=== PATIENT | male | born 1955 | race Caucasian/White ===

== ENCOUNTER 2016-07-18 19:08 | Emergency (ER) | payer MEDICAID, MEDICARE ==
[~2016-07-18] VITALS: Ht 195.6 cm; Wt 112.7 kg
[~2016-07-18 19:08] MED LIST: CHOL100045 PO; CYCL10TA9 PO; FERR-83 PO; HYDR-4003 PO; LATA2.5D6 AFFECT_EYE; MELO-253 PO; TIMO10DR11 OD
[2016-07-18 19:09] VITALS: PULSE 82; RESP 45; O2SAT 100
[2016-07-18] MEDS ORDERED: LISI10TA PO (19:16)
[2016-07-18] MEDS ORDERED: HYG25 PO (19:16)
[2016-07-18] MEDS ORDERED: ferrous PO (19:16)
[2016-07-18 19:47] LABS: BASOPHILS % (AUTO) 0.7 % (0-3); MONOCYTES % (AUTO) 12.3 % (4-12); Mean Corpuscular Hemoglobin 31.2 pg (27.0-35.0); Mean Corpuscular Volume 94.3 fL (81-100); NEUTROPHILS % (AUTO) 57.4 % (40-74); Platelet Count 365 bil/L (150-400)
--- NOTE | 2016-07-18 19:48 | ED.REPORT ---
HPI-Syncope Date of Service July 18, 2016 ED Provider: Dr. Fortino Wolff M.D. History of Present Illness: OCC A 60 year old male with a history of hypertension, hyperlipidemia, peptic ulcer disease, chronic back pain, and PTSD presents to the ED via EMS after a syncopal episode just prior to arrival, after standing up from his chair. The episode was preceded by nausea, lightheadedness, and a left thigh cramp. The patient also reports a "couple of days" of headache and intermittent bilateral leg cramping. EMS found the patient with a systolic BP of 49, a blood sugar of 55, and otherwise normal vital signs. He has had similar lightheadedness after standing recently and had a similar syncopal episode four months ago while in [facility]. The patient denies fever, chills, dysuria, hematuria, hematochezia, chest pain, decreased liquid intake, leg swelling, hypotensive episodes, or other symptoms. He was seen by his PCP this morning for chronic back pain. The patient presents symptom free, other than reporting mild lower back pain from sitting. Nursing Notes Stated Complaint: SYNCOPE,HYPOGLYCEMIA Chief Complaint: General Complaint Nursing Notes Reviewed: Yes ([place] reconciled) Allergies: Coded Allergies: Penicillins (Verified Allergy, Severe, RASH, 07/18/16) trazodone (Verified Adverse Reaction, Severe, HAM VOMITING, 07/18/16) Scheduled ([ferrous]) 65 MG PO DAILY Chlorthalidone (Chlorthalidone) 25 Mg Tablet 25 MG PO DAILY Cholecalciferol (Vitamin D3) (Vitamin D) 1,000 Unit Capsule 1,000 UNIT PO BID PLEASE VERIFY DOSAGE Lisinopril (Lisinopril) 10 Mg Tablet 10 MG PO DAILY Meloxicam (Meloxicam) 15 Mg Tablet 15 MG PO DAILY Timolol Maleate (Timolol Maleate) 10 Ml Drops 1 DROP OD DAILY Scheduled PRN Cyclobenzaprine (Cyclobenzaprine) 10 Mg Tablet 10 MG PO BID PRN PRN Spasm Hydrocodone-Acetaminophen 5-325 mg (Hydrocodone-Acetaminophen 5-325 mg) 1 Each Tablet 1 EACH PO Q6 PRN PRN For Pain General Time Seen by Provider: 19:45 Chief Complaint Other (Syncope) Syncope Description: Same as prior, Single episode Hx Obtained From: Patient Arrived By: Ambulance Onset Occurred: Just prior to arrival Symptom Duration: Since onset Location: : Back: Head: Leg Quality: Painful Severity: Current: Mild Severity: Maximum: Moderate Related History: Reports: Hypertension Immunizations: All up to date Recent Healthcare: Recent doctor visit Similar Sx Previous: Yes Past Medical History Past Medical History Peptic ulcer disease Chronic back pain h/o PTSD Reports: Hyperlipidemia, Hypertension Past Surgical History Obesity surgery (Mian-en-Y) Left shoulder Reports: Appendectomy Smoking History Former Smoker Social History Father had angina Alcohol Use: Denies alcohol use Drug Use: Denies drug use Other Social History: Good social support, Ambulatory Status Independent Review of Systems Review of Systems Note: - Decreased liquid intake, prior hypotensive episodes Constitutional: Denies: Chills, Fever Respiratory: Denies: Non-productive cough, Shortness of breath Cardiovascular: Denies: Chest pain GI: Reports: Nausea, Denies: Diarrhea, Hematochezia, Vomiting Musculoskeletal: Reports: Back pain (Low), Extremity pain (Bilateral lower extremity cramping ), Denies: Extremity swelling Neurologic: Reports: Headache (Resolved), Lightheaded, Syncope Complete sys rev & neg: except as marked. Additional Review of Systems Male: Denies Dysuria, Denies Hematuria Physical Exam Initial Vital Signs Vital Signs (First) Date Time Temp Pulse Resp B/P Pulse Ox O2 Delivery O2 Flow Rate FiO2 07/18/16 19:09 36.2 82 45 100 07/18/16 20:19 94/44 Room Air Initial VS: Reviewed, Unavailable (no BP on chart, ordered), Vital signs abnormal (tachypneic, no BP on chart) Head / Eyes: Atraumatic, Normocephalic ENT: Conjunctiva normal, No scleral icterus Neck: Supple, Full range of motion Skin: Warm, Dry Psychiatric: Mood/affect normal, Behavior normal General/Constitutional: Awake, Alert, Well appearing Hypotensive Respiratory / Chest: Breath sounds NL, Breath sounds = bilat, No respiratory distress Respiratory rate 18 Cardiovascular: Heart rate NL, Regular rhythm, Heart sounds NL Lower Extremity / Pelvis / MS: Inspection NL, No edema Neurologic: Oriented X3, Speech NL, No motor deficits, No sensory deficits Interpretation & Diagnostics Lab Results Interpretation Result Diagram: 07/18/16192807/18/161928 Test 07/18/16 19:25 07/18/16 19:29 07/18/16 19:33 D-Dimer 0.61mg/L FEU (<0.50) White Blood Count 10.9th/mm3 (3.8-10.1) Red Blood Count 4.20mil/mm3 (4.40-5.80) Hemoglobin 13.1g/dL (13.8-17.2) Hematocrit 39.6% (41.0-50.0) Mean Corpuscular Volume 94.3fL (81-100) Mean Corpuscular Hemoglobin 31.2pg (27.0-35.0) Mean Corpuscular Hemoglobin Concent 33.1% (32.0-37.0) Red Cell Distribution Width 12.9% (12.3-15.4) Platelet Count 365bil/L (150-400) Neutrophils (%) (Auto) 57.4% (40-74) Lymphocytes (%) (Auto) 26.4% (14-46) Monocytes (%) (Auto) 12.3% (4-12) Eosinophils (%) (Auto) 3.0% (0-5) Basophils (%) (Auto) 0.7% (0-3) Sodium Level 137mEq/L (134-144) Potassium Level 4.0mEq/L (3.5-5.2) Chloride Level 99mEq/L (97-108) Carbon Dioxide Level 24mmol/L (18-29) Blood Urea Nitrogen 34mg/dL (6-24) Creatinine 1.58mg/dL (0.76-1.27) Estimat Glomerular Filtration Rate 48mL/min (>59) Glucose Level 48mg/dL (60-99) Calcium Level 9.1mg/dL (8.5-10.1) Total Bilirubin 0.2mg/dL (0.0-1.2) Aspartate Amino Transf (AST/SGOT) 17U/L (0-50) Alanine Aminotransferase (ALT/SGPT) 15U/L (0-44) Alkaline Phosphatase 58U/L (25-150) Troponin T < 0.010ug/L (0.0-0.011) Total Protein 7.5g/dL (6.4-8.4) Albumin 4.3g/dL (3.4-5.0) Lactic Acid Level 1.9mmol/L (0.4-2.0) Lab Results Interpretation: CBC normal CMP renal insufficiency (new compared with 2015), hypoglycemia-already treated, repeat Accu-Chek the department normal D-dimer, age adjusted negative ECG Interpretation ECG Interpretation: Normal sinus rhythm rate 91 No acute ischemia or dysrhythmia Time: 19:40 Interpreted by: ED physician Re-Eval/Medical Decision Med Decision/Clinical Course This is a 60-year-old male who presents with a syncopal episode. He reports he sometimes gets dizzy when he stands counseling increasingly common, he is on lisinopril plus a second diuretic medication for blood pressure management. He has had no chest pain, shortness of breath, he has had some trace leg cramps, etc. has been a long standing ongoing issue. He was hypotensive per EMS, but his blood pressures improved, although it still on the low end of normal in the mid 90s. He has no symptoms with it. Tachycardic, he denies fevers, chills, denies GI or blood loss. He had no dysrhythmic events. His EKG is normal. Blood work reveals mild renal insufficiency so is hydrated. It is also possible renal sufficiency secondary to his medications. The patient was observed and did well. His blood pressure remained in the 90s to 100s, but he remained entirely asymptomatic, he can get up, walk around and said he felt normal. Indication he needs to be hospitalized at this time, but I have recommended that his blood pressure medications be held the moment. I have also recommended that he does need to be rechecked by his PCP in follow-up for his renal function. Patient's call for discharge home. Patient discharged ambulatory asymptomatic and good clinical condition. His blood pressure still 96-102 systolic. Patient is also marginally hypoglycemic in the field, he received orange juice, he has Accu-Cheks done that were normal in the department. He has had no further recurrence. Source of Hx: Old records Re-Evaluation/Progress : Time of Eval: 22:50 Patient Status: Condition improved Re-Evaluation/Progress Note: Patient is feeling better but he is still mildly hypotensive. Discussed with patient lab results, diagnosis, and plan for discharge after a successful road test. Follow-up and return to the ER instructions given. Patient agrees with plan for care and all questions were addressed. Differential Diagnosis: Positive: Hypoglycemia, Negative: Alcohol abuse, Anemia, Cerebrovascular accident, Closed head injury , Head trauma, Intracranial bleed, Malingering, Medication-induced, Pneumothorax , Prolonged QT syndrome, Pulmonary embolus, Transient ischemic attack Counseled Regarding: Diagnosis, Lab results, Need for follow-up, When/why to return to ED Discharge & Departure Impression: Primary Impression: Syncope Syncope type: unspecified Qualified Code: R55 - Syncope and collapse Additional Impressions: Renal insufficiency Low blood pressure Hypotension type: unspecified hypotension type Qualified Code: I95.9 - Hypotension, unspecified Hypoglycemia Disposition: Home Discharge Condition All VS Reviewed: Yes Condition: Improved Additional Instructions: 1. You had an episode of "syncope" tonight. 2. Your tests in the emergency department were normal except that your kidney function tests, called the "creatinine", was mildly elevated at 1.58. You should have your kidney function re-tested in ~1-2 weeks, call your doctor to arrange. 3. Your blood pressure was also slightly low - 96 systolic. 4. For the next week, hold off on your blood pressure medications. (In addition to the low blood pressure tonight, they *might* be contributing to the mild kidney abnormality.) 5. Take it easy. 6. Return if new or worsening symptoms. Referrals: Filomena Vale (PCP) Scribe Attestation Portions of this note were transcribed by Radha David. I, Dr. Wolff, personally performed the history, physical exam, and medical decision-making; I reviewed and confirmed the accuracy of the information in the transcribed note. Signed by: Nahomy Owen, 07/19/2016, 01:00 copies to: Filomena Vale Matthew F MD July 18, 2016 19:47 RADHA DAVID July 18, 2016 19:55
[2016-07-18 19:58] LABS: TROPONIN T < 0.010 ug/L (0.0-0.011)
[2016-07-18] MEDS ORDERED: 0.9% Sodium Chloride 500 ML IV ONE (20:00)
[2016-07-18 20:19] VITALS: BP 94/44; PULSE 80; RESP 15; O2SAT 100
[2016-07-18] MEDS ORDERED: 0.9% Sodium Chloride 1,000 ML IV ONE (21:05)
[2016-07-18 21:21] VITALS: BP 96/50; PULSE 76; RESP 20; O2SAT 96
[2016-07-18 23:20] VITALS: BP 99/55; PULSE 72; RESP 18; O2SAT 97
== END 2016-07-18 23:21 | disposition home or self-care (01) ==
LOC: SED 19:08
DX: R55 Syncope and collapse (principal); N28.9 Disorder of kidney and ureter, unspecified; I95.9 Hypotension, unspecified; E16.2 Hypoglycemia, unspecified; R11.0 Nausea; R25.2 Cramp and spasm; R51 Headache; M54.5 Low back pain; G89.29 Other chronic pain; I10 Essential (primary) hypertension; E78.5 Hyperlipidemia, unspecified; Z87.891 Personal history of nicotine dependence; Z88.0 Allergy status to penicillin; Z88.8 Allergy status to other drugs, medicaments and biological substances
CPT/HCPCS: 36415; 80053; 82948; 83605; 84484; 85025; 85378; 93005; 96360; 96361; 99285; J7030; J7040